=== PATIENT | male | born 1970 | race Caucasian/White ===

== ENCOUNTER → 2017-11-08 | Outpatient (CLI) | payer BC ==
--- NOTE | 2017-11-08 14:29 | MRI ---
MRI SPINE CERVICAL WITHOUT CONTRAST CLINICAL HISTORY: 47-year-old male with chronic neck pain. COMPARISON: None. Technique: Multiplanar, multisequence MRI images of the cervical spine were obtained without the adm inistration of intravenous contrast. FINDINGS: Reversal of the normal cervical lordosis apex C6-C7 as imaged. Alignment is maintained. The craniocervical junction is normal. Overall vertebral body height is preserved with type 1 endplate c hanges C7-T1 consistent with active degeneration. Endplate erosions and loss of disc space with loss of disc signal are present. Remaining vertebral marrow is unremarkable. Remaining disc height and sig nal are unremarkable. Cord signal is normal. The visualized posterior fossa structures are normal. C2-C3: No central canal or neural foraminal stenosis. C3-C4: Central disc osteophyte without central canal or neural foraminal stenosis. No cord impingemen t or signal change. C4-C5: Small central disc osteophyte without central canal or neural foraminal stenosis. No cord impi ngement or signal change. C5-C6: Broad-based disc osteophyte complex that mildly effaces the ventral subarachnoid spaces with f lattening of the ventral cord without cord signal change. Central canal measures 12.5 mm. Uncovertebr al joint hypertrophy with spurring produces mild right neural foraminal stenosis. C6-C7: Broad-based disc osteophyte complex effaces the ventral subarachnoid spaces with flattening of the ventral cord without cord signal change. Central canal measures 10.1 mm. No significant neural f oraminal stenosis. C7-T1: Shallow, broad-based disc osteophyte complex narrows canal 11.4 mm. Subtle flattening of the v entral cord without cord signal change. Uncovertebral and facet joint hypertrophy combine to produce mild bilateral neural foraminal stenosis. Paraspinous soft tissues are unremarkable. IMPRESSION: 1. 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 2. See level by level descriptions above. Reported By:
== END ==
LOC: RAD 12:57
PROVIDERS: ATTEND Psychiatry & Neurology Neurology
DX: M47.812 Spondylosis without myelopathy or radiculopathy, cervical region (principal)
CPT/HCPCS: 72141